=== PATIENT | male | born 1985 | race Caucasian/White ===

== ENCOUNTER 2024-07-19 18:34 | Emergency (ER) | payer SELFPAY ==
[~2024-07-19] VITALS: Ht 167.6 cm; Wt 82.0 kg
[2024-07-19 18:36] VITALS: O2SAT 100
[2024-07-19 18:39] VITALS: BP 127/83; PULSE 100; RESP 16; TEMP 98.2; O2SAT 100
== END 2024-07-19 23:50 | disposition left against medical advice (07) ==
LOC: ER 18:34
DX: R51.9 Headache, unspecified (principal); Z53.21 Procedure and treatment not carried out due to patient leaving prior to being seen by health care provider